=== PATIENT | male | born 1955 | race Caucasian/White ===

== ENCOUNTER 2023-05-28 07:39 | Day surgery (SDC) | payer MEDICARE ==
[2023-05-28] VITALS (8 sets, daily range): BP systolic 121–156; BP diastolic 71–99; PULSE 57–65; RESP 16; TEMP 98.2; O2SAT 93–96
[~2023-05-28] VITALS: Ht 177.8 cm; Wt 99.5 kg
[2023-05-28] MEDS ORDERED: fentaNYL/PF 50MCG/1 ML 2ML syringe ONE (08:19)
[2023-05-28] MEDS ORDERED: midazolam 1 mg/ML 2ml injection ONE (08:19)
[2023-05-28] MEDS ORDERED: LIDOcaine 1% (10mg/ml) 2ml vial ONE (08:19)
[2023-05-28] MEDS ORDERED: verapamil 2.5 mg/ml inj IV ONE (08:19)
[2023-05-28] MEDS ORDERED: iohexol 350MG/ML 100ml bottle IV ONE (08:20)
[2023-05-28] MEDS ORDERED: heparin 1,000unit/ml 10ml vial 10 ML ONE (08:20)
[2023-05-28] MEDS ORDERED: nitroGLYCERIN 500mcg/5mL D5W 5 ML IV ONE (08:20)
[2023-05-28] MEDS ORDERED: iohexol 350 MG/ML 50ML vial IV ONE (08:20)
[2023-05-28] MEDS ORDERED: METO50TA16 PO (08:25)
[2023-05-28] MEDS ORDERED: ROSU20TA73 PO (08:25)
[2023-05-28] MEDS ORDERED: LORA10TA7 PO (08:25)
[2023-05-28] MEDS ORDERED: FLUT16SP BOTHNARES (08:26)
[2023-05-28] MEDS ORDERED: UBID100C16 PO (08:26)
[2023-05-28] MEDS: LORazepam 0.5 MG tablet PO PRN (08:35)
[2023-05-28] MEDS: normal saline 1,000 ML IV SCH (08:35)
[2023-05-28] MEDS: diphenhydrAMINE 25mg capsule PO PRN (08:35)
[2023-05-28 08:36] LABS: BASOPHILS % (AUTO) 0.6 % (0-1); EOSINOPHILS # (AUTO) 0.2 X10'3 (0-0.9); EOSINOPHILS % (AUTO) 3.8 % (0-6); HEMATOCRIT 46.6 % (42.0-52.0); HEMOGLOBIN 15.8 g/dl (14.0-17.9); LYMPHOCYTES # (AUTO) 1.1 X10'3 (1.1-4.8); MEAN CORPUSCULAR HEMOGLOBIN 30.2 PG (27.0-31.0); MEAN CORPUSCULAR HGB CONC 33.8 g/dL (33.0-36.5); MEAN CORPUSCULAR VOLUME 89.1 FL (78-98); MEAN PLATELET VOLUME 7.5 FL (7.4-10.4); MONOCYTES # (AUTO) 0.7 X10'3 (0-0.9); MONOCYTES % (AUTO) 14.7 % (2-12); NEUTROPHILS # (AUTO) 2.7 X10'3 (1.8-7.7); NEUTROPHILS % (AUTO) 57.9 % (42-75); PLATELET COUNT 182 X10'3 (140-440); RED BLOOD COUNT 5.23 X10'6 (4.70-6.10); RED CELL DISTRIBUTION WIDTH 14.1 % (11.5-14.5); WHITE BLOOD COUNT 4.6 X10'3 (4.5-11.0)
[2023-05-28 08:54] LABS: ALBUMIN 3.8 G/DL (3.4-5.0); ANION GAP 9 (8-16); BLOOD UREA NITROGEN 20 MG/DL (7-18); BUN/CREATININE RATIO 23.3 (10.0-20.0); CHLORIDE 103 MMOL/L (99-107); CREATININE 0.86 MG/DL (0.60-1.10); GLUCOSE 103 MG/DL (70-104); POTASSIUM 4.2 MMOL/L (3.5-5.1); SODIUM 141 MMOL/L (135-145); TOTAL CARBON DIOXIDE 28.6 MMOL/L (24-32); eCRCL 85 ML/MIN; eGFR 88 ML/MIN
[2023-05-28 08:56] LABS: APTT 29 SECONDS (22-32)
[2023-05-28 09:11] LABS: PROTHROMBIN TIME 10.3 SECONDS (9.0-12.0)
[2023-05-28 09:36] LABS: ISTAT HGB ART 15.3 g/dl (14.0-17.9); ISTAT Hct ART 45 %PCV (42-52); ISTAT O2 SATURATION ARTERIAL 92 % (95-98); ISTAT SOURCE ART
[2023-05-28 09:58] LABS: ISTAT Hct MIX 44 %PCV (42-52); ISTAT O2 SATURATION MIX VENOUS 66 % (60-80); ISTAT SOURCE VEN
== END 2023-05-28 13:10 | disposition home or self-care (01) ==
LOC: SSTAY O 07:39
PROVIDERS: ATTEND Internal Medicine Cardiovascular Disease
DX: I34.0 Nonrheumatic mitral (valve) insufficiency (principal); I25.10 Atherosclerotic heart disease of native coronary artery without angina pectoris; I10 Essential (primary) hypertension; E78.5 Hyperlipidemia, unspecified; Z79.899 Other long term (current) drug therapy; Z79.01 Long term (current) use of anticoagulants
CPT/HCPCS: 36415; 76937; 80048; 82803; 85014; 85025; 85610; 85730; 93005; 93460; 99152; 99153; J1644; J2250; J3010; J3490; J7030; Q0163; Q9967; A6258; A6402; C1725; C1751; C1894